=== PATIENT | male | born 1960 | race Caucasian/White ===

== ENCOUNTER 2019-09-30 14:22 | Outpatient (CLI) | payer SELFPAY ==
--- NOTE | 2019-09-30 | XR_ITS ---
WS: [id number] LUMBAR SPINE: 5 VIEWS TECHNIQUE: AP, lateral, and L5-S1 spot. Lateral views in neutral, flexion and extension. HISTORY: LOW BACK PAIN WITH SCIATICA RT HIP COMPARISON: None available. 5 lumbar type vertebral bodies. 2 mm retrolisthesis of L1-L5. Moderate disc space narrowing at L3-4 a nd L5-S1. With flexion and extension the retrolisthesis at each level does not change significantly. There is no instability. No fractures. SI joints are symmetric bilaterally. No soft tissue abnormalities. Surgical clips RIGHT abdomen. XR/XR lumbar spine min 4V [id number] IMPRESSION: 1. No lumbar spine instability. 2. Mild multilevel spondylosis. Mild disc space narrowing is most significant at the L3-4 and L5-S1 levels.
== END 2019-09-30 14:23 | disposition home or self-care (01) ==
LOC: RADOUTREAD 10-01 07:24
PROVIDERS: Family Provider Family Medicine; PCP Family Medicine; Visit Provider Family Medicine
DX: Z01.89 Encounter for other specified special examinations (principal)

== ENCOUNTER 2024-12-17 13:27 | Inpatient (IN) | payer MEDICARE, BC, SELFPAY ==
[2024-12-17 13:40] VITALS: BP 84/60; PULSE 89; RESP 18; TEMP 37; O2SAT 96
[2024-12-17 14:37] LABS: Bilirubin Urine 1+ (Negative); Blood Urine 1+ (Negative); Glucose Urine UA Negative (Normal); Ketones Urine Trace (Negative); Leukocyte Esterase Urine Negative (Negative); Nitrate Urine Negative (Negative); Protein Urine 2+ (Negative); Specific Gravity, Urine 1.024 (1.005-1.030); Urine Appearance Turbid (CLEAR); Urine Color Dark Yellow (Yellow)
[2024-12-17 15:02] LABS: UA Manual Slide Review YES; UA Slide Review UA Slide Review Perf
[2024-12-17 15:03] LABS: RBC Urine 0-4 /hpf (0-2); WBC Urine 0-4 /hpf (0-5)
[2024-12-17 15:04] LABS: Hyaline Casts Urine 25-40 /lpf
--- NOTE | 2024-12-17 16:00 | ED_ITS ---
HPI - Recheck/Abnormal Lab/Rx 2 General: Chief Complaint: Recheck/Abnormal Lab/Rx Stated Complaint: Dr Alcala for tick fever Time Seen by Provider: 12/17/24 15:50 Source: patient and family Mode of arrival: ambulatory Limitations: no limitations History of Present Illness: 64yo male presents with family for evalu ation of possible tick fever. Patient's and family report he was sent over by Dr. Deras after they obtain results from labs that were drawn at the office this morning. Patient reports that since Sunday he has been having intermittent fevers with night sweats and chills. States he has had nausea as well. Reports Dr. Deras was concerned of tick fever and possible renal injury/failure. 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 Patient was prescribed doxycycline and ondansetron this morning and has had 1 dose of each. Family does report that patient has had numerous tick bites. Patient denies any rashes or lesions from the tick bites. Family does report patient has a history of migraines and takes topiramate daily. Related Data Allergies Allergy/AdvReac Type Severity Reaction Status Date / Time No Known Allergies Allergy Verified 12/17/24 13:44 Review of Systems 2 Const: Reports: fever(s), chills and night sweats Card: Denies: chest pain Resp: Denies: dyspnea GI: Reports: nausea; Denies: abdominal pain or vomiting : Denies: flank pain Skin/Breast: Denies: rash, pruritus or new lesions PFSH ED 2 PFSH: Social History (Updated 12/17/24 @ 20:48 by Ryan Marquez MD) Smoking and tobacco/nicotine status: never used tobacco/nicotine Alcohol intake: never Substance/Drug Use: never Additional social history: Wants full code as discussed with patient and Janette at bedside on 12/17/2024 by Ryan Marquez MD 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 He is able to give history with assistance from family. He is interactive with exam appropriately. HENMT: COMMON NORMALS: normocephalic and atraumatic HEAD & SCALP: n ormocephalic and atraumatic GENERAL EAR: hearing grossly impaired Chest: CHEST: Yes Symmetrical chest wall rise Resp: COMMON NORMALS: normal respiratory effort, No use of accessory muscles and clear to auscultation bilaterally EFFORT & INSPECTION: Yes symmetric chest movement AUSCULTATION: clear to auscultation bilaterally Cardio: COMMON NORMALS: regular rate and regular rhythm RATE: regular rate RHYTHM: regular rhythm Extremity: COMMON NORMALS: full ROM Neuro: COMMON NORMALS: patient oriented x3 SENSORIUM/ORIENTATION: Yes alert Psych: COMMON NORMALS: cooperative Course 2 Vital Signs: Vital signs: Vital Signs Temperature 98.6 F 12/17/24 13:40 Pulse Rate 73 12/17/24 20:38 Respiratory Rate 20 H 12/17/24 20:38 Blood Pressure 102/62 12/17/24 20:38 Pulse Oximetry 97 12/17/24 20:38 Oxygen Delivery Me thod Room Air 12/17/24 20:38 MDM - Recheck/Abnormal Lab/Rx Medical Decision Making 64yo male presents with family for evaluation of possible tick fever and DARIA/ARF. He was seen at Dr. Deras office this morning due to intermittent fever, night sweats, and chills that have been ongoing since Sunday. Patient only has 1 kidney as his right kidney was removed in 2007 due to a tumor. They do report numerous tick bites, but no rashes or lesions on the tick bites. Initial blood pressure in triage would be 84/60, repeat once roomed was 106/64. Awaiting CBC. Creatinine is noted to be markedly elevated at 4.0 with a GFR of 15.3. BUN is also elevated at 51. AST, ALT and alkaline phosphatase are noted to be elevated at 488, 261, and 306 respectively. This is consistent with concern of tick illness. UA with 2+ protein, 1+ blood, 1+ bilirubin. While awaiting CBC, will proceed with gentle fluid resuscitation. White blood cell count is noted to be 5.8. Platelets are decreased at 37, this combined with the CMP is concerning for tickborne illness. Phosphorus and magnesium obtained due to hypocalcemia, both are in the normal range. EKG obtained as well and shows sinus rhythm. Discussed case with Dr. Marquez, hospitalist. He is agreeable with admission for hydration and tickborne illness. Patient and family are agreeable with plan for admission. Medical Records I reviewed the patient's medical records. Lab Data I reviewed the patient's lab results. 12/17/24 16:45 12/17/24 16:45 Laboratory Results WBC 5.80 10^3/uL (3.29-11.43) 12/17/24 16:45 RBC 4.12 10^6/uL (3.85-5.65) 12/17/24 16:45 Hgb 12.60 g/dL (11.27-16.99) 12/17/24 16:45 Hct 38.9 % (37-53) 12/17/24 16:45 MCV 94.4 fl (82-101) 12/17/24 16:45 MCH 30.6 pg (27-33) 12/17/24 16:45 MCHC 32.4 g/dL (30-55) 12/17/24 16:45 RDW 14.2 % (12.1-15.1) 12/17/24 16:45 Plt Count 37 10^3/cmm (157-399) L 12/17/24 16:45 MPV 12.1 fL (7.4-10.4) H 12/17/24 16:45 Neut % (Auto) 40.3 % 12/17/24 16:45 Lymph % (Auto) 53.3 % 12/17/24 16:45 Norton % (Auto) 4.3 % 12/17/24 16:45 Eos % (Auto) 0.0 % 12/17/24 16:45 Baso % (Auto) 1.4 % 12/17/24 16:45 Neut # (Auto) 2.34 10^3/uL (1.8-7.7) 12/17/24 16:45 Lymph # (Auto) 3.1 10^3/uL (0.8-4.8) 12/17/24 16:45 Norton # (Auto) 0.3 10^3/uL (0.2-0.9) 12/17/24 16:45 Eos # (Auto) 0.0 10^3/uL (0.0-0.8) 12/17/24 16:45 Baso # (Auto) 0.1 10^3/uL (0.0-0.1) 12/17/24 16:45 Nucleated RBC % (auto) 0 % 12/17/24 16:45 Nucleated RBCs # 0.0 /100WBC 12/17/24 16:45 Sodium 134 mmol/L (136-145) L 12/17/24 16:45 Potassium 4.4 mmol/L (3.5-5.1) 12/17/24 16:45 Chloride 97 mmol/L (98-107) L 12/17/24 16:45 Carbon Dioxide 17 mmol/L (22-29) L 12/17/24 16:45 Anion Gap 24.4 (5-19) H 12/17/24 16:45 BUN 51 mg/dL (8-23) H 12/17/24 16:45 Creatinine 4.0 mg/dL (0.7-1.2) H 12/17/24 16:45 GFR Calculation 15.3 mL/min (90-130) L 12/17/24 16:45 Glucose 80 mg/dL (65-115) 12/17/24 16:45 Calculated Osmolality 291 mOsm/kg (285-295) 12/17/24 16:45 Lactic Acid 1.6 mmol/L (0.5-2.2) 12/17/24 16:45 Calcium 7.8 mg/dL (8.5-10.5) L 12/17/24 16:45 Phosphorus 4.2 mg/dL (2.5-4.5) 12/17/24 16:45 Magnesium 2.1 mg/dL (1.7-2.3) 12/17/24 16:45 Total Bilirubin 0.5 mg/dL (0.15-1.2) 12/17/24 16:45 AST 488 U/L (0-40) H 12/17/24 16:45 ALT 261 U/L (0-41) H 12/17/24 16:45 Alkaline Phosphatase 306 U/L (40-130) H 12/17/24 16:45 Total Protein 6.2 g/dL (6.6-8.7) L 12/17/24 16:45 Albumin 3.3 g/dL (3.5-5.2) L 12/17/24 16:45 Globulin 2.9 g/dL (1.3-4.6) 12/17/24 16:45 Lipase 36 U/L (13-60) 12/17/24 16:45 Urine Color Dark yellow (Yellow) A 12/17/24 13:46 Urine Appearance Turbid (CLEAR) A 12/17/24 13:46 Urine pH 5.0 (5-7) 12/17/24 13:46 Ur Specific [place] 1.024 (1.005-1.030) 12/17/24 13:46 Urine Protein 2+ (Negative) A 12/17/24 13:46 Urine Glucose (UA) Negative (Normal) 12/17/24 13:46 Urine Ketones Trace (Negative) 12/17/24 13:46 Urine Blood 1+ (Negative) A 12/17/24 13:46 Urine Nitrate Negative (Negative) 12/17/24 13:46 Urine Bilirubin 1+ (Negative) H 12/17/24 13:46 Urine Urobilinogen 1.0 mg/dL (Negative) 12/17/24 13:46 Ur Leukocyte Esterase Negative (Negative) 12/17/24 13:46 Urine RBC 0-4 /hpf (0-2) H 12/17/24 13:46 Urine WBC 0-4 /hpf (0-5) H 12/17/24 13:46 Ur Squamous Epith Cells 6-10 /hpf (0-5) 12/17/24 13:46 Amorphous Sediment Not Reportable 12/17/24 13:46 Urine Bacteria None /hpf (NONE) 12/17/24 13:46 Hyaline Casts 25-40 /lpf H 12/17/24 13:46 No radiology studies performed this visit Discharge Plan Discharge Patient Disposition: Admitted As Inpatient Admit Provider: Ryan Marquez Clinical Impression: DARIA (acute kidney injury), Tick borne fever Condition: Stable Coding Level of Care Code ED Beater Lead for Xenia Reynoso
[2024-12-17 17:12] LABS: Basophils # 0.1 10^3/uL (0.0-0.1); Basophils % 1.4 %; Hematocrit 38.9 % (37-53); Lymphocytes # 3.1 10^3/uL (0.8-4.8); Lymphocytes % 53.3 %; Mean Corpuscular HGB Conc 32.4 g/dL (30-55); Mean Corpuscular Hemoglobin 30.6 pg (27-33); Mean Corpuscular Volume 94.4 fl (82-101); Mean Platelet Volume 12.1 fL (7.4-10.4); Monocytes # 0.3 10^3/uL (0.2-0.9); Monocytes % 4.3 %; Neutrophils # 2.34 10^3/uL (1.8-7.7); Neutrophils % 40.3 %; Nucleated Red Blood Cells % 0 %; Platelet Count 37 10^3/cmm (157-399); Red Blood Count 4.12 10^6/uL (3.85-5.65); Red Cell Distribution Width 14.2 % (12.1-15.1)
[2024-12-17 17:34] LABS: Alanine Aminotransferase 261 U/L (0-41); Albumin Level 3.3 g/dL (3.5-5.2); Alkaline Phosphatase 306 U/L (40-130); Anion Gap 24.4 (5-19); Aspartate Amino Transferase 488 U/L (0-40); Blood Urea Nitrogen 51 mg/dL (8-23); Calcium 7.8 mg/dL (8.5-10.5); Carbon Dioxide 17 mmol/L (22-29); Chloride 97 mmol/L (98-107); Globulin 2.9 g/dL (1.3-4.6); Glomerular Filtration Rate 15.3 mL/min (90-130); Glucose 80 mg/dL (65-115); Lipase 36 U/L (13-60); Osmolality Calculated 291 mOsm/kg (285-295); Potassium 4.4 mmol/L (3.5-5.1); Sodium 134 mmol/L (136-145); Total Bilirubin 0.5 mg/dL (0.15-1.2); Total Protein 6.2 g/dL (6.6-8.7)
[2024-12-17 17:38] LABS: Lactic Sepsis W/Reflex 1.6 mmol/L (0.5-2.2)
[2024-12-17 18:28] LABS: Slide Review Slide Review Perform
[2024-12-17] MEDS: sodium chloride 0.9% 500 ML IV (19:07)
[2024-12-17 19:10] VITALS: BP 106/64; PULSE 78; RESP 20
--- NOTE | 2024-12-17 19:11 | ECG_ITS ---
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 Measurements Intervals Pool Rate: 72 P: 39 VA: 151 QRS: -18 QRSD: 115 T: 31 QT: 371 QTc: 407 Interpretive Statements SINUS RHYTHM MODERATE INTRAVENTRICULAR CONDUCTION DELAY [110+ ms QRS DURATION] Compared to ECG 06/04/2019 21:45:39 No significant changes Electronically Signed On 12-23-2024 11:53:58 CDT by Albert Pavon M.D. [email or web address]
[2024-12-17 19:40] VITALS: BP 102/62; PULSE 75; RESP 18; O2SAT 97
[2024-12-17 19:42] LABS: Magnesium 2.1 mg/dL (1.7-2.3); Phosphorus 4.2 mg/dL (2.5-4.5)
[2024-12-17 20:38] VITALS: BP 102/62; PULSE 73; RESP 20; O2SAT 97
--- NOTE | 2024-12-17 20:41 | P.HP_ITS ---
Providers/Chief Complaint 2 Admitting Physician: Ryan Marquez MD Primary Care Provider: Ernie Deras MD Chief Complaint: Dr Alcala for tick fever History of Present Illness Bubba Park is a 64 year old male seen by Dr. Deras in the office for fevers chills sweats starting Sunday. He was thought to have tickborne illness as he has had multiple tick bites in the last 2 weeks. Notably none of them got particularly red however patient has 1 kidney from previous elective nephrectomy for kidney mass 2008 on the right kidney he does not take ibuprofen or Aleve or NSAIDs. He has been taking only Tylenol for discomfort and Topamax for headaches. Patient had labs showing creatinine 4 and was referred to the emergency department. LFTs also elevated. No particular workup was done for that in the emergency department i.e. no imaging. He did have a urine which is negative for blood or infection. The patient denies sick contacts. He denies eating any food that is compromised. He has had mild diarrhea as well as some nausea. He denies history of kidney or gallbladder stones Review of Systems 2 Narrative: General positive for fevers chills sweats he denies weight change Musculoskeletal he is had some headache but otherwise is not in pain specifically but does report some myalgias denies joint pain Cardiovascular no chest pain palpitations or edema Respiratory no shortness of breath cough wheezing GI positive for nausea poor appetite some diarrhea no constipation and he denies abdominal pain no dysuria hematuria states urine has been a little darker but he still peeing normal amounts at home Skin denies any rashes or tick borne inflammation Medications/Allergies Allergies Allergy/AdvReac Type Severity Reaction Status Date / Time No Known Allergies Allergy Verified 12/17/24 13:44 PFSH Acute 2 PFSH: Social History (Updated 12/17/24 @ 20:48 by Ryan Marquez MD) Smoking and tobacco/nicotine status: never used tobacco/nicotine Alcohol intake: never Substance/Drug Use: never Additional social history: Wants full code as discussed with patient and Janette at bedside on 12/17/2024 by Ryan Marquez MD 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 Vitals/I&O/Wt Last Vital Signs Temp 98.6 F 12/17/24 13:40 Pulse 73 12/17/24 20:38 Resp 20 H 12/17/24 20:38 BP 102/62 12/17/24 20:38 Pulse Ox 97 12/17/24 20:38 O2 Del Method Room Air 12/17/24 20:38 Weight last 48 hrs Weight 77.111 kg Physical Exam 2 Narrative: General well-developed well-nourished male in no acute cardiopulmonary distress Neuro he is alert oriented moves all extremities symmetrically neck is not stiff CV regular rate and rhythm Lungs clear to auscultation bilaterally Abdomen positive bowel sounds soft nontender Calves no tenderness cords edema Skin warm and dry Data 12/17/24 16:45 12/17/24 16:45 A&P Assessment and plan (1) Elevated LFTs: Suspicious for tickborne injury but cannot completely exclude acute hepatitis hepatitis panel has been ordered repeat labs in the morning. Abdominal ultrasound and renal ultrasound will be ordered (2) DARIA (acute kidney injury): Renal ultrasound and hydration. He is not a candidate for contrast (3) Tick borne fever: Start doxycycline PDMP PDMP Reviewed: Not Reviewed Attestations 2 Medical Necessity Statement*: Patient be admitted to the hospital with expected 2 midnights or more Coding Level of Care Code 62351 Diagnoses Elevated LFTs R79.89 DARIA (acute kidney injury) N17.9 Tick borne fever A93.8 Time Spent (min) 55
[2024-12-17] MEDS: doxycycline 100 mg Tablet PO (21:15)
[2024-12-17 21:41] VITALS: BP 102/62; PULSE 85; RESP 18; O2SAT 93
[2024-12-17 22:29] VITALS: BP 100/64; PULSE 71; RESP 16; TEMP 37.1; O2SAT 92
--- NOTE | 2024-12-17 22:29 | USR_ITS ---
PROCEDURE INFORMATION: Exam: US Abdomen Complete Exam date and time: 12/17/2024 10:36 PM Age: 64 years old Clinical indication: Abnormal findings; Abnormal lab test; Elevated liver enzymes; Additional info: Elevated lfts TECHNIQUE: Imaging protocol: Real-time ultrasound of the abdomen with image documentation. Complete exam. Total images: 5 COMPARISON: CT abdomen pelvis w con* [id number] 06/02/2019 9:31 PM FINDINGS: Liver: 14.5 cm Liver length. The liver is normal in echogenicity and configuration. No masses are detected. There is no intrahepatic biliary dilatation. Gallbladder: The gallbladder has a normal appearance with normal wall thickness and no pericholecystic fluid nor inflammatory changes. No gallstones are seen. No sludge is detected. Biliary ducts: Common bile duct diameter is 5 mm. Pancreas: Visualized pancreas is unremarkable. Right kidney: Prior right nephrectomy. Left kidney: 11.2 cm length of left kidney. Left kidney with normal parenchymal echogenicity and no hydronephrosis, calculi, solid masses, nor perinephric fluid collection. Spleen: Normal. No splenomegaly. Urinary bladder: Mildly distended urinary bladder with calculated bladder volume of 15 mL. Urinary bladder unremarkable. Aorta: Normal. No aneurysm. Inferior vena cava: IVC unremarkable. Portal venous: Spectral sonography demonstrates patent portal vein with hepatopedal blood flow. Normal respiratory phasicity on spectral waveform, indicating preserved compliance of the liver. No portal venous abnormality identified. US/US abdomen complete* [id number] IMPRESSION: No acute findings.
[2024-12-17 23:05] LABS: Hepatitis A Antibody IgM Non-Reactive (Nonreactive); Hepatitis B Core IgM Non-Reactive (Nonreactive); Hepatitis B Surface Antigen Non-Reactive (Nonreactive); Hepatitis C Virus Antibody Non-Reactive (Nonreactive)
[2024-12-17 23:28] VITALS: BMI 26.6
[2024-12-17] MEDS: sodium chlor 0.9% + KCl 20 mEq 20 MEQ/1,000 ML BAG 100 MEQ IV (23:36)
[2024-12-17] MEDS: heparin 5,000 unit/mL INJ 1 mL 5000 UNIT SUBCUT (23:37)
[2024-12-18 04:00] VITALS: BP 105/66; PULSE 71; RESP 18; TEMP 36.9; O2SAT 90
[2024-12-18 06:12] LABS: Alanine Aminotransferase 255 U/L (0-41); Alkaline Phosphatase 296 U/L (40-130); Anion Gap 23.4 (5-19); Aspartate Amino Transferase 409 U/L (0-40); Blood Urea Nitrogen 57 mg/dL (8-23); Calcium 7.4 mg/dL (8.5-10.5); Carbon Dioxide 15 mmol/L (22-29); Chloride 100 mmol/L (98-107); Creatinine Clr Calc Pharmacy 14.7867; Globulin 2.6 g/dL (1.3-4.6); Glomerular Filtration Rate 11.3 mL/min (90-130); Glucose 64 mg/dL (65-115); Osmolality Calculated 292 mOsm/kg (285-295); Potassium 4.4 mmol/L (3.5-5.1); Sodium 134 mmol/L (136-145); Total Bilirubin 0.4 mg/dL (0.15-1.2); Total Protein 5.6 g/dL (6.6-8.7)
--- NOTE | 2024-12-18 06:39 | PC.NURSE ---
pt voided once this shift, bladder scan showed 72 ml
[2024-12-18 07:17] VITALS: BP 102/62; PULSE 62; RESP 16; TEMP 36.8; O2SAT 93
[2024-12-18 08:09] LABS: Hematocrit 35.3 % (37-53); Mean Corpuscular HGB Conc 33.1 g/dL (30-55); Mean Corpuscular Hemoglobin 30.6 pg (27-33); Mean Corpuscular Volume 92.4 fl (82-101); Mean Platelet Volume 11.4 fL (7.4-10.4); Platelet Count 55 10^3/cmm (157-399); Red Blood Count 3.82 10^6/uL (3.85-5.65); Red Cell Distribution Width 14.5 % (12.1-15.1); White Blood Count 8.46 10^3/uL (3.29-11.43)
[2024-12-18 08:30] LABS: C Reactive Protein 145.6 mg/L (0.0-4.9); Lactate Dehydrogenase 885 U/L (135-225)
[2024-12-18 08:35] LABS: Erythrocyte Sedimentation Rate 8 mm/hr (0-10)
[2024-12-18 08:36] LABS: Procalcitonin 6.12 ng/mL (0-0.5)
[2024-12-18 09:04] LABS: Slide Review Slide Review Perform
[2024-12-18] MEDS: heparin 5,000 unit/mL INJ 1 mL 5000 UNIT SUBCUT ×2 (09:39→22:03)
[2024-12-18] MEDS: sodium chlor 0.9% + KCl 20 mEq 20 MEQ/1,000 ML BAG 100 MEQ IV (09:39)
[2024-12-18] MEDS: doxycycline 100 mg Tablet PO (09:39)
[2024-12-18 09:40] LABS: Absolute Segmented Neutrophil 4.1 10/cmm (1.6-7.1); Band Neutrophils Absolute 0.3 10^3/cmm (0.0-1.2); Eosinophils 0 %; Monocytes Absolute 0.3 10^3/cmm (0.1-0.6); Segmented Neutrophils 49 %; Total Cells Counted 100 (0-100)
[2024-12-18 09:41] LABS: Absolute Neutrophil 4.4 10^3/cmm (1.4-6.5); Lymphocytes 25 %; Lymphocytes Absolute 3.7 10^3/cmm (1.2-3.4); Platelet Estimate Decreased (Normal)
[2024-12-18 11:03] VITALS: BP 103/63; PULSE 60; RESP 16; TEMP 36.6; O2SAT 94
--- NOTE | 2024-12-18 11:13 | CTR_ITS ---
PROCEDURE INFORMATION: Exam: CT Chest Without Contrast; Diagnostic Exam date and time: 12/18/2024 4:21 PM Age: 64 years old Clinical indication: Other: Sepsis; Fever; Prior surgery; Surgery date: 6+ months; Surgery type: Small bowel resection, nephrectomy; Additional info: Sepsis, fever, TECHNIQUE: Imaging protocol: Diagnostic computed tomography of the chest without contrast. Radiation optimization: All CT scans at this facility use at least one of these dose optimization techniques: automated exposure control; mA and/or kV adjustment per patient size (includes targeted exams where dose is matched to clinical indication); or iterative reconstruction. COMPARISON: CR XR chest 1V [id number] 06/04/2019 3:42 AM RADIATION DOSE METRICS: Total DLP (mGy-cm): 737.08 FINDINGS: Lungs: Mild dependent atelectatic changes at the level of the bilateral lower lobes. Mild interlobular septal thickening in both lungs. No infiltrates. Pleural spaces: No pleural effusions or pneumothorax. Heart: Mild cardiomegaly. No pericardial effusions. No significant coronary artery calcifications. Lymph nodes: No mediastinal hilar lymphadenopathy. Vasculature: Unremarkable. No aortic aneurysm. Bones/joints: Unremarkable. No acute fracture. Soft tissues: Unremarkable. PROCEDURE INFORMATION: Exam: CT Abdomen And Pelvis Without Contrast Exam date and time: 12/18/2024 4:21 PM Age: 64 years old Clinical indication: Other: Sepsis; Fever; Prior surgery; Surgery date: 6+ months; Surgery type: Small bowel resection, nephrectomy; Additional info: Sepsis, fever, TECHNIQUE: Imaging protocol: Computed tomography of the abdomen and pelvis without contrast. Radiation optimization: All CT scans at this facility use at least one of these dose optimization techniques: automated exposure control; mA and/or kV adjustment per patient size (includes targeted exams where dose is matched to clinical indication); or iterative reconstruction. COMPARISON: CT abdomen pelvis w con* [id number] 06/02/2019 9:31 PM RADIATION DOSE METRICS: Total DLP (mGy-cm): 737.08 FINDINGS: Liver: Simple cyst in the left lobe of the liver measuring up to 1.9 cm. No follow-up indicated. Liver otherwise unremarkable. Gallbladder and biliary ducts: Normal. No calcified stones. No ductal dilation. Pancreas: Normal. No ductal dilation. Spleen: Normal. No splenomegaly. Adrenal glands: Normal. No mass. Kidneys and ureters: Surgically absent right kidney. Left kidney unremarkable. Stomach and bowel: Unremarkable. No obstruction. No mucosal thickening. Appendix: Appendix not visualized with certainty. No inflammatory changes in the right lower quadrant. Intraperitoneal space: Unremarkable. No free air. No significant fluid collection. Vasculature: Unremarkable. No abdominal aortic aneurysm. Lymph nodes: Unremarkable. No enlarged lymph nodes. Urinary bladder: Calles catheter within the urinary bladder which is otherwise unremarkable. Reproductive: Unremarkable as visualized. Bones/joints: Unremarkable. No acute fracture. Soft tissues: Unremarkable. CT/[place] [id number] IMPRESSION: 1. Mild interlobular thickening in both lungs which can be seen with mild fluid overload. 2. Otherwise, no acute findings in the chest. 3. Mild cardiomegaly. 4. Mild dependent atelectatic changes at the level of the bilateral lower lobes. IMPRESSION: 1. No acute findings in the abdomen or pelvis. 2. Surgically absent right kidney.
[2024-12-18 11:40] LABS: Reticulocyte % 0.4 % (0.5-2.0)
[2024-12-18 11:49] LABS: Monoscreen Negative (Negative)
[2024-12-18 11:57] LABS: Iron 30 ug/dL (59-158)
[2024-12-18 11:59] LABS: LAB Peripheral Smear Sent for Review
[2024-12-18 11:59] LABS: INR 0.86 (0.8-1.2)
[2024-12-18 12:04] LABS: Lactic Sepsis W/Reflex 0.8 mmol/L (0.5-2.2)
[2024-12-18] MEDS: sodium bicarbonate 50 MEQ in sodium chloride 0.45% 1,000 ML 100 MEQ IV ×2 (12:04→22:03)
[2024-12-18 14:06] LABS: Ferritin 15619 ng/mL (30-400)
--- NOTE | 2024-12-18 15:10 | P.PN_ITS ---
Subjective 2 Subjective: Patient was seen this morning, he is alert oriented x 2, following all commands, no headache, blurry vision, no nausea, no vomiting, no chest pain, palpitations, shortness of breath, no abdominal pain, no diarrhea, no cough, no dysuria, discussed his acute transaminitis, acute kidney injury with creatinine up to 5.2, elevated inflammatory markers highly suspicious for tickborne illness, continue doxycycline we will monitor him closely, IV fluids, he voices understanding, all questions answered, does report quite frequent tick bites, not currently on him Vitals/I&O/Wt Last Vital Signs Temp 97.8 F 12/18/24 11:03 Pulse 60 12/18/24 11:03 Resp 16 12/18/24 11:03 BP 103/63 12/18/24 11:03 Pulse Ox 94 12/18/24 11:03 O2 Del Method Room Air 12/18/24 11:03 12/18/24 12/18/24 12/18/24 06:59 14:59 22:59 Intake Total 1474 / 1474 Balance 1474 / 1474 Weight last 48 hrs Weight 78.29 kg Weight 78.29 kg Weight 77.111 kg Weight 77.111 kg Physical Exam 2 Const: COMMON NORMALS: no acute distress and patient oriented x3 Resp: COMMON NORMALS: normal respiratory effort, No retractions, No use of accessory muscles and clear to auscultation bilaterally AUSCULTATION: clear to auscultation bilaterally Cardio: COMMON NORMALS: regular rate, regular rhythm, S1 normal heart sound present and S2 normal heart sound present RATE: regular rate RHYTHM: r egular rhythm HEART SOUNDS: S1 normal heart sound present and S2 normal heart sound present GI: COMMON NORMALS: Normal to inspection, nondistended, normoactive bowel sounds present and non-tender Extremity: COMMON NORMALS: no pedal edema Neuro: COMMON NORMALS: patient oriented x3, CN's II-XII intact bilaterally and moves all extremities Psych: COMMON NORMALS: mental status grossly normal Data 12/18/24 04:45 12/18/24 04:45 Micro: Microbiology 12/18/24 09:32 Blood Culture - Preliminary Blood SPECIMEN COLLECTED 12/18/24 09:24 Blood Culture - Preliminary Blood SPECIMEN COLLECTED A&P Assessment and plan (1) Elevated LFTs: (2) DARIA (acute kidney injury): (3) Tick borne fever: (4) Thrombocytopenia: (5) Increased anion gap metabolic acidosis: (6) High serum ferritin: Plan Tickborne illness - With transaminitis - With acute renal failure, - With thrombocytopenia - Elevated inflammatory markers - CRP 145.6, Pro-Matheus 6.12, ferritin 79623, [id number], haptoglobin 286 Plan - Continue IV doxycycline - Follow tick panel - Given elevated inflammatory markers, complains of fevers, chills, DARIA,, alk phos will rule out secondary source of infection, order CT scan chest abdomen pelvis Acute renal failure - With increased anion gap metabolic acidosis - History of nephrectomy - Continue bicarb drip - Monitor urine output, monitor creatinine History of cochlear implant - Denies any neck pain, no neck stiffness, no headache, no blurry vision, alert oriented x 3 - Kernig sign negative, Brudunski sign negative Full code Heparin for DVT prophylaxis PDMP PDMP Reviewed: Not Reviewed Attestations 2 Medical Necessity Statement*: Patient requires hospitalization for tickborne illness, acute renal failure, transaminitis Diagnoses Elevated LFTs R79.89 DARIA (acute kidney injury) N17.9 Tick borne fever A93.8 Thrombocytopenia D69.6 Increased anion gap metabolic acidosis E87.29 High serum ferritin R79.89
[2024-12-18 15:14] VITALS: BP 103/67; PULSE 61; RESP 16; TEMP 36.4; O2SAT 95
[2024-12-18 15:44] LABS: Fibrinogen 262 mg/dL (174-498)
[2024-12-18 15:50] LABS: Triglycerides 396 mg/dL (0-150)
[2024-12-18 15:51] LABS: Acetaminophen < 5.0 ug/mL (10-30); Salicylate < 0.3 mg/dL (3-10)
[2024-12-18] MEDS: topiramate 25 mg Tablet PO (18:40)
[2024-12-18] MEDS: doxycycline 100 MG in sodium chloride 0.9% (plus) 100 ML IV (18:40)
[2024-12-18 19:28] LABS: Amphetamines Screen Urine Negative (Negative); Barbiturates Screen Urine Negative (Negative); Benzodiazepines Screen Urine Negative (Negative); Cocaine Screen Urine Negative (Negative); Opiate Screen Urine Negative (Negative); PCP Screen Urine Negative (Negative); THC Screen Urine Negative (Negative)
[2024-12-18 19:44] LABS: HIV 1 & 2 Antibody Non-Reactive (Non-Reactiv); HIV 1 & 2 Antigen Non-Reactive (Non-Reactiv)
[2024-12-18 20:00] VITALS: BP 112/71; PULSE 64; RESP 16; TEMP 36.7; O2SAT 95
--- NOTE | 2024-12-18 21:36 | PM.CONSULT ---
Providers/Reason For Consult Consulting Physician/Specialty*: kommana/Nephrology Reason for Consult*: Acute on CKD Attending Physician: Chun Bell MD Primary Care Provider: Ernie Deras MD History of Present Illness History of Present Illness Bubba Park is a 64 year old male Patient is a 64-year-old male with past medical history of chronic kidney disease with solitary kidney, no other significant medical problems was sent to the hospital due to fever chills and patient had multiple tick bites about 2 weeks ago.. Denies any NSAID use. No recent IV contrast exposure. On review of prior labs patient has a baseline creatinine of 1.5-2 range and now has DARIA with a creatinine of 4 on presentation that has gotten worse to 5.2. Also has metabolic acidosis. He is currently on room air Review of Systems Narrative: Other review of systems negative Medications/Allergies Home Medications ?Medication ?Instructions ?Recorded ?Confirmed ?Last Taken ?Type topiramate 50 mg tablet 50 mg PO BID 12/17/24 12/17/24 Unknown History Allergies Allergy/AdvReac Type Severity Reaction Status Date / Time mupirocin (From Bactroban) Allergy ALGY-Rash Verified 12/17/24 23:31 Current Medications Generic Name Dose Route Start Last Admin Trade Name Freq PRN Reason Stop Dose Admin Heparin Sodium (Porcine) 5,000 unit 12/17/24 22:29 12/18/24 09:39 Heparin 5,000 Unit/Ml Inj 1 Ml SUBCUT 5,000 unit Q12H YESENIA Administration Doxycycline Hyclate 100 mg/ 100 mls @ 100 mls/hr 12/18/24 18:00 12/18/24 19:45 Sodium Chloride IV Infused Q12H YESENIA Infusion Protocol Sodium Bicarbonate 50 meq/ 1,050 mls @ 100 mls/hr 12/18/24 11:15 12/18/24 19:45 Sodium Chloride IV 100 mls/hr .[id number] YESENIA Infusion Topiramate 25 mg 12/18/24 18:00 12/18/24 18:40 Topiramate 25 Mg Tablet PO 25 mg BID YESENIA Administration PFSH Acute PFSH: Social History (Updated 12/17/24 @ 20:48 by Ryan Marquez MD) Smoking and tobacco/nicotine status: never used tobacco/nicotine Alcohol intake: never Substance/Drug Use: never Additional social history: Wants full code as discussed with patient and Janette at bedside on 12/17/2024 by Ryan Marquez MD Previous occupational history: 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 dizzy and migraine Vitals/I&O/Wt Last Vital Signs Temp 98.1 F 12/18/24 20:00 Pulse 64 12/18/24 20:00 Resp 16 12/18/24 20:00 BP 112/71 12/18/24 20:00 Pulse Ox 95 12/18/24 20:00 O2 Del Method Room Air 12/18/24 20:00 12/18/24 12/18/24 12/18/24 06:59 14:59 22:59 Intake Total 1474 / 1474 2014 / 3489 Output Total 250 / 250 Balance 1474 / 1474 1765 / 3239 Weight last 48 hrs Weight 78.29 kg Weight 78.29 kg Weight 77.111 kg Weight 77.111 kg Physical Exam Narrative: Patient is awake and alert, no distress, on room air PERRLA S1-S2 regular rate and rhythm per report Lungs clear per report Abdomen soft nontender per report No pedal edema Urinary Catheter Management: Calles: Cath Placed During This Visit: yes Urinary Catheter Date of Insertion: 12/18/24 Urinary Catheter Time of Insertion: 11:30 Data 12/18/24 04:45 12/18/24 04:45 Micro: Microbiology 12/18/24 09:32 Blood Culture - Preliminary Blood SPECIMEN COLLECTED 12/18/24 09:24 Blood Culture - Preliminary Blood SPECIMEN COLLECTED A&P Assessment and plan (1) DARIA (acute kidney injury): 1. Acute on chronic kidney disease stage III: Baseline creatinine in the mid 1 range, now has severe DARIA with a creatinine of 5.2 associated with metabolic acidosis. Etiology likely ATN in the setting of poor p.o. intake and acute infection. Patient also with solitary left kidney. Agree with bicarbonate drip, and monitor renal function closely. He is currently on room air.- -No acute indication for dialysis today, if renal function continues to get worse will require temporary HD -Avoid IV contrast if possible 2. Metabolic acidosis, agree with bicarbonate drip and monitor 3. Suspected tickborne illness, on doxycycline 4. Hyponatremia: Mild, monitor Patient evaluated using audiovisual cart. Time spent 40 minutes. - PDMP PDMP Reviewed: Not Reviewed Consult Attestations Medical Necessity Statement: Per medicine team. Coding Level of Care Code Acute Code for Chg Fwd Diagnoses DARIA (acute kidney injury) N17.9
[2024-12-18 23:49] VITALS: BP 114/70; PULSE 67; RESP 16; TEMP 36.4; O2SAT 94
[2024-12-19 04:00] VITALS: BP 116/68; PULSE 65; RESP 16; TEMP 36.4; O2SAT 95
[2024-12-19] MEDS: doxycycline 100 MG in sodium chloride 0.9% (plus) 100 ML IV ×2 (05:14→17:58)
[2024-12-19 05:43] LABS: Basophils % 0.3 %; Eosinophils % 0.1 %; Hematocrit 34.3 % (37-53); Lymphocytes # 8.4 10^3/uL (0.8-4.8); Lymphocytes % 75.2 %; Mean Corpuscular HGB Conc 33.8 g/dL (30-55); Mean Corpuscular Hemoglobin 30.9 pg (27-33); Mean Corpuscular Volume 91.5 fl (82-101); Mean Platelet Volume 11.2 fL (7.4-10.4); Monocytes % 8.6 %; Neutrophils # 1.72 10^3/uL (1.8-7.7); Neutrophils % 15.4 %; Nucleated Red Blood Cells % 0 %; Platelet Count 78 10^3/cmm (157-399); Red Blood Count 3.75 10^6/uL (3.85-5.65); Red Cell Distribution Width 14.5 % (12.1-15.1); White Blood Count 11.14 10^3/uL (3.29-11.43)
[2024-12-19 06:00] LABS: Creatine Phosphokinase 101 U/L (39-308)
[2024-12-19 06:01] LABS: Alanine Aminotransferase 275 U/L (0-41); Albumin Level 2.9 g/dL (3.5-5.2); Alkaline Phosphatase 327 U/L (40-130); Anion Gap 18.3 (5-19); Aspartate Amino Transferase 415 U/L (0-40); Blood Urea Nitrogen 76 mg/dL (8-23); Calcium 7.4 mg/dL (8.5-10.5); Carbon Dioxide 20 mmol/L (22-29); Chloride 105 mmol/L (98-107); Creatinine Clr Calc Pharmacy 13.1456; Globulin 2.1 g/dL (1.3-4.6); Glomerular Filtration Rate 9.8 mL/min (90-130); Glucose 108 mg/dL (65-115); Osmolality Calculated 311 mOsm/kg (285-295); Potassium 4.3 mmol/L (3.5-5.1); Sodium 139 mmol/L (136-145); Total Bilirubin 0.3 mg/dL (0.15-1.2)
[2024-12-19 07:08] VITALS: BP 128/77; PULSE 60; RESP 16; TEMP 36.6; O2SAT 96
[2024-12-19 07:33] LABS: EBV IGM TEST <36.00 U/mL; EBV Nuclear AG >600.00 U/mL; EBV Viral Capsid AB IGM <36.00 U/mL
--- NOTE | 2024-12-19 09:01 | P.PN_ITS ---
Subjective 2 Subjective: no new complaints Medications: Reviewed: Yes Vitals/I&O/Wt Last Vital Signs Temp 97.8 F 12/19/24 07:08 Pulse 60 12/19/24 07:08 Resp 16 12/19/24 07:08 BP 128/77 12/19/24 07:08 Pulse Ox 96 12/19/24 07:08 O2 Del Method Room Air 12/19/24 07:08 12/18/24 12/19/24 12/19/24 22:59 06:59 14:59 Intake Total 2245 / 3719 820 / 4539 120 / 120 Output Total 450 / 450 600 / 1050 Balance 1795 / 3269 220 / 3489 120 / 120 Weight last 48 hrs Weight 79.832 kg Weight 78.29 kg Weight 78.29 kg Weight 77.111 kg Weight 77.111 kg Physical Exam 2 Narrative: Patient is awake and alert, no distress, on room air PERRLA S1-S2 regular rate and rhythm per report Lungs clear per report Abdomen soft nontender per report No pedal edema Urinary Catheter Management: Calles: Cath Placed During This Visit: yes Reason for Continuing Indwelling Catheter: Acute Urinary Retention or Obstruction Urinary Catheter Date of Insertion: 12/18/24 Urinary Catheter Time of Insertion: 11:30 Data 12/19/24 04:29 12/19/24 04:29 Micro: Microbiology 12/18/24 09:32 Blood Culture - Preliminary Blood SPECIMEN COLLECTED 12/18/24 09:24 Blood Culture - Preliminary Blood SPECIMEN COLLECTED A&P Assessment and plan (1) DARIA (acute kidney injury): 1. Acute on chronic kidney disease stage III: Baseline creatinine in the mid 1 range, now has severe DARIA with a creatinine of 5.2 associated with metabolic acidosis. Etiology likely ATN in the setting of poor p.o. intake and acute infection. Patient also with solitary left kidney. Agree with bicarbonate drip, and monitor renal function closely. He is currently on room air.- - Cr worse today . monitor -No acute indication for dialysis today, if renal function continues to get worse will require temporary HD -Avoid IV contrast if possible 2. Metabolic acidosis, agree with bicarbonate drip and monitor 3. Suspected tickborne illness, on doxycycline 4. Hyponatremia: Mild, monitor Patient evaluated using audiovisual cart. Time spent 40 minutes. - PDMP PDMP Reviewed: Not Reviewed Attestations 2 Medical Necessity Statement*: per feliz Coding Level of Care Code Acute Code for Chg Fwd Diagnoses DARIA (acute kidney injury) N17.9
--- NOTE | 2024-12-19 10:02 | PC.SOCIAL ---
IMM Update pg 2 of IMM Updated and reviewed w/ patient. Copy dated, initialed and placed in chart. Copy provided.
[2024-12-19] MEDS: topiramate 25 mg Tablet PO ×2 (10:43→17:58)
[2024-12-19] MEDS: heparin 5,000 unit/mL INJ 1 mL 5000 UNIT SUBCUT ×2 (10:44→23:03)
[2024-12-19] MEDS: sodium bicarbonate 50 MEQ in sodium chloride 0.45% 1,000 ML 100 MEQ IV ×2 (10:51→23:03)
[2024-12-19 11:04] VITALS: BP 119/76; PULSE 56; RESP 15; TEMP 36.5; O2SAT 97
[2024-12-19 15:10] VITALS: BP 109/72; PULSE 55; RESP 15; TEMP 36.4; O2SAT 96
--- NOTE | 2024-12-19 16:16 | P.PN_ITS ---
Subjective 2 Subjective: Patient was seen this morning, he is alert oriented x 3, following all commands, denies any fevers, no chills, no cough, he is having good urine output discussed his creatinine up to 5.9, continue IV fluids, discussed tickborne illness, will continue to clinically monitor Vitals/I&O/Wt Last Vital Signs Temp 97.5 F L 12/19/24 15:10 Pulse 55 L 12/19/24 15:10 Resp 15 12/19/24 15:10 BP 109/72 12/19/24 15:10 Pulse Ox 96 12/19/24 15:10 O2 Del Method Room Air 12/19/24 15:10 12/19/24 12/19/24 12/19/24 06:59 14:59 22:59 Intake Total 820 / 4539 450 / 450 Output Total 600 / 1050 400 / 400 Balance 220 / 3489 50 / 50 Weight last 48 hrs Weight 79.832 kg Weight 78.29 kg Weight 78.29 kg Weight 77.111 kg Physical Exam 2 Const: COMMON NORMALS: no acute distress and patient oriented x3 Resp: COMMON NORMALS: normal respiratory effort, No retractions, No use of accessory muscles and clear to auscultation bilaterally AUSCULTATION: clear to auscultation bilaterally Cardio: COMMON NORMALS: regular rate, regular rhythm, S1 normal heart sound present and S2 normal heart sound present RATE: regular rate RHYTHM: r egular rhythm HEART SOUNDS: S1 normal heart sound present and S2 normal heart sound present GI: COMMON NORMALS: Normal to inspection, nondistended, normoactive bowel sounds present and non-tender Extremity: COMMON NORMALS: no pedal edema Neuro: COMMON NORMALS: patient oriented x3 Psych: COMMON NORMALS: mental status grossly normal Urinary Catheter Management: Calles: Cath Placed During This Visit: yes Reason for Continuing Indwelling Catheter: Acute Urinary Retention or Obstruction Urinary Catheter Date of Insertion: 12/18/24 Urinary Catheter Time of Insertion: 11:30 Data 12/19/24 04:29 12/19/24 04:29 Micro: Microbiology 12/18/24 09:32 Blood Culture - Preliminary Blood NEGATIVE TO DATE 12/18/24 09:24 Blood Culture - Preliminary Blood NEGATIVE TO DATE A&P Assessment and plan (1) Elevated LFTs: (2) DARIA (acute kidney injury): (3) Tick borne fever: (4) Thrombocytopenia: (5) Increased anion gap metabolic acidosis: (6) High serum ferritin: Plan Tickborne illness - With transaminitis - With acute renal failure, - With thrombocytopenia - Elevated inflammatory markers - CRP 145.6, Pro-Matheus 6.12, ferritin 49991, [id number], haptoglobin 286 - CT scan abdomen pelvis no acute findings Plan - Continue IV doxycycline - Follow tick panel Acute renal failure, creatinine up to 5.9 - With increased anion gap metabolic acidosis - History of nephrectomy, surgically absent right kidney - Continue bicarb drip - Monitor urine output, monitor creatinine - Nephrology consulted History of cochlear implant - Denies any neck pain, no neck stiffness, no headache, no blurry vision, alert oriented x 3 - Kernig sign negative, Brudunski sign negative Full code Heparin for DVT prophylaxis PDMP PDMP Reviewed: Not Reviewed Attestations 2 Medical Necessity Statement*: Patient requires hospitalization for tickborne illness, acute renal failure, transaminitis, thrombocytopenia Diagnoses Elevated LFTs R79.89 DARIA (acute kidney injury) N17.9 Tick borne fever A93.8 Thrombocytopenia D69.6 Increased anion gap metabolic acidosis E87.29 High serum ferritin R79.89
[2024-12-19 18:07] LABS: Anion Gap 19.5 (5-19); Blood Urea Nitrogen 75 mg/dL (8-23); Carbon Dioxide 20 mmol/L (22-29); Chloride 103 mmol/L (98-107); Creatinine Clr Calc Pharmacy 15.8283; Glomerular Filtration Rate 12.1 mL/min (90-130); Glucose 96 mg/dL (65-115); Osmolality Calculated 308 mOsm/kg (285-295); Potassium 4.5 mmol/L (3.5-5.1); Sodium 138 mmol/L (136-145)
[2024-12-19 20:00] VITALS: BP 119/74; PULSE 60; RESP 16; TEMP 36.4; O2SAT 96
[2024-12-20] VITALS (7 sets, daily range): BP systolic 119–138; BP diastolic 74–77; PULSE 50–58; RESP 15–17; TEMP 36.4–36.7; O2SAT 94–97
[2024-12-20 03:35] LABS: Lyme AB Screen <0.90 index
[2024-12-20 05:23] LABS: Basophils # 0.1 10^3/uL (0.0-0.1); Basophils % 0.7 %; Eosinophils # 0.1 10^3/uL (0.0-0.8); Eosinophils % 0.6 %; Lymphocytes # 9.3 10^3/uL (0.8-4.8); Lymphocytes % 77.6 %; Mean Corpuscular HGB Conc 32.7 g/dL (30-55); Mean Corpuscular Hemoglobin 30.4 pg (27-33); Monocytes # 0.5 10^3/uL (0.2-0.9); Monocytes % 4.5 %; Neutrophils # 1.95 10^3/uL (1.8-7.7); Neutrophils % 16.3 %; Nucleated Red Blood Cells % 0 %; Platelet Count 79 10^3/cmm (157-399); Red Blood Count 3.55 10^6/uL (3.85-5.65); Red Cell Distribution Width 14.8 % (12.1-15.1); White Blood Count 11.93 10^3/uL (3.29-11.43)
--- NOTE | 2024-12-20 05:27 | P.PN_ITS ---
Subjective 2 Subjective: no new c/o Medications: Reviewed: Yes Vitals/I&O/Wt Last Vital Signs Temp 97.7 F 12/20/24 03:45 Pulse 58 L 12/20/24 03:45 Resp 17 12/20/24 03:45 BP 124/77 12/20/24 03:45 Pulse Ox 95 12/20/24 03:45 O2 Del Method Room Air 12/20/24 03:45 12/19/24 12/19/24 12/20/24 14:59 22:59 06:59 Intake Total 450 / 450 1051.667 / 1501.667 438.333 / 1940.000 Output Total 400 / 400 1450 / 1850 Balance 50 / 50 1051.667 / 1101.667 -1011.667 / 90.000 Weight last 48 hrs Weight 79.333 kg Weight 79.832 kg Weight 78.29 kg Physical Exam 2 Narrative: Patient is awake and alert, no distress, on room air PERRLA S1-S2 regular rate and rhythm per report Lungs clear per report Abdomen soft nontender per report No pedal edema Urinary Catheter Management: Calles: Cath Placed During This Visit: yes Reason for Continuing Indwelling Catheter: Other Urinary Catheter Date of Insertion: 12/18/24 Urinary Catheter Time of Insertion: 11:30 Data 12/21/24 02:14 12/21/24 02:14 Micro: Microbiology 12/18/24 09:32 Blood Culture - Preliminary Blood NEGATIVE TO DATE 12/18/24 09:24 Blood Culture - Preliminary Blood NEGATIVE TO DATE A&P Assessment and plan (1) DARIA (acute kidney injury): 1. Acute on chronic kidney disease stage III: Baseline creatinine in the mid 1 range, now has severe DARIA with a creatinine of 5.2 associated with metabolic acidosis. Etiology likely ATN in the setting of poor p.o. intake and acute infection. Patient also with solitary left kidney. Agree with bicarbonate drip, and monitor renal function closely. He is currently on room air.- - cr improving , monitor -Avoid IV contrast if possible 2. Metabolic acidosis, agree with bicarbonate drip and monitor 3. Suspected tickborne illness, on doxycycline 4. Hyponatremia: Mild, monitor Patient evaluated using audiovisual cart. Time spent 40 minutes. - PDMP PDMP Reviewed: Not Reviewed Attestations 2 Medical Necessity Statement*: per [facility] Coding Level of Care Code Acute Code for Chg Fwd Diagnoses DARIA (acute kidney injury) N17.9
[2024-12-20 05:52] LABS: Alanine Aminotransferase 285 U/L (0-41); Albumin Level 2.7 g/dL (3.5-5.2); Alkaline Phosphatase 324 U/L (40-130); Anion Gap 16.5 (5-19); Aspartate Amino Transferase 364 U/L (0-40); Blood Urea Nitrogen 74 mg/dL (8-23); Calcium 7.9 mg/dL (8.5-10.5); Carbon Dioxide 23 mmol/L (22-29); Chloride 106 mmol/L (98-107); Globulin 2.4 g/dL (1.3-4.6); Glomerular Filtration Rate 12.4 mL/min (90-130); Glucose 92 mg/dL (65-115); Osmolality Calculated 314 mOsm/kg (285-295); Potassium 4.5 mmol/L (3.5-5.1); Sodium 141 mmol/L (136-145); Total Bilirubin 0.4 mg/dL (0.15-1.2); Total Protein 5.1 g/dL (6.6-8.7)
[2024-12-20] MEDS: doxycycline 100 MG in sodium chloride 0.9% (plus) 100 ML IV ×2 (05:56→17:24)
[2024-12-20 06:08] LABS: Slide Review Slide Review Perform
[2024-12-20] MEDS: topiramate 25 mg Tablet PO ×2 (08:23→17:24)
[2024-12-20] MEDS: heparin 5,000 unit/mL INJ 1 mL 5000 UNIT SUBCUT ×2 (10:47→21:39)
[2024-12-20] MEDS: sodium bicarbonate 50 MEQ in sodium chloride 0.45% 1,000 ML 100 MEQ IV (10:47)
[2024-12-20 11:13] LABS: HIV 1 & 2 Antibody Non-Reactive (Non-Reactiv); HIV 1 & 2 Antigen Non-Reactive (Non-Reactiv)
--- NOTE | 2024-12-20 14:45 | P.PN_ITS ---
Subjective 2 Subjective: Patient was seen this morning, no acute events overnight, no fevers, chills, no cough, no nausea, vomiting, continues to have good urine output Vitals/I&O/Wt Last Vital Signs Temp 97.8 F 12/20/24 11:14 Pulse 56 L 12/20/24 11:14 Resp 16 12/20/24 11:14 BP 126/77 12/20/24 11:14 Pulse Ox 96 12/20/24 11:14 O2 Del Method Room Air 12/20/24 11:14 12/19/24 12/20/24 12/20/24 22:59 06:59 14:59 Intake Total 1051.667 / 9539.976 5836.666 / 2728.333 721.667 / 721.667 Output Total 1450 / 1850 1200 / 1200 Balance 1051.667 / 1101.667 -223.334 / 878.333 -478.333 / -478.333 Weight last 48 hrs Weight 79.333 kg Weight 79.832 kg Physical Exam 2 Const: COMMON NORMALS: no acute distress and patient oriented x3 Resp: COMMON NORMALS: normal respiratory effort, No retractions, No use of accessory muscles and clear to auscultation bilaterally AUSCULTATION: clear to auscultation bilaterally Cardio: COMMON NORMALS: regular rate, regular rhythm, S1 normal heart sound present and S2 normal heart sound present RATE: regular rate RHYTHM: r egular rhythm HEART SOUNDS: S1 normal heart sound present and S2 normal heart sound present GI: COMMON NORMALS: Normal to inspection, nondistended, normoactive bowel sounds present, Soft to palpation and non-tender PALPATION: Yes Soft to palpation Extremity: COMMON NORMALS: no pedal edema Neuro: COMMON NORMALS: patient oriented x3 Psych: COMMON NORMALS: mental status grossly normal Urinary Catheter Management: Calles: Cath Placed During This Visit: yes, but has since been removed by the nurse Reason for Continuing Indwelling Catheter: Decision to DC Catheter Urinary Catheter Date of Insertion: 12/18/24 Urinary Catheter Time of Insertion: 11:30 Date Urinary Catheter Removed: 12/20/24 Time Urinary Catheter Discontinued: 13:34 Data 12/20/24 04:22 12/20/24 04:22 A&P Assessment and plan (1) Elevated LFTs: (2) DARIA (acute kidney injury): (3) Tick borne fever: (4) Thrombocytopenia: (5) Increased anion gap metabolic acidosis: (6) High serum ferritin: Plan Tickborne illness - With transaminitis - With acute renal failure, - With thrombocytopenia - Elevated inflammatory markers - CRP 145.6, Pro-Matheus 6.12, ferritin 72774, [id number], haptoglobin 286 - CT scan abdomen pelvis no acute findings Plan - Continue IV doxycycline - Follow tick panel Acute renal failure, creatinine up to 4.8 - With increased anion gap metabolic acidosis - History of nephrectomy, surgically absent right kidney - Continue bicarb drip - Monitor urine output, monitor creatinine - Nephrology consulted History of cochlear implant - Denies any neck pain, no neck stiffness, no headache, no blurry vision, alert oriented x 3 - Kernig sign negative, Brudunski sign negative Does have atypical lymphocytes in peripheral smear - Repeat HIV testing - EBV testing, IgM antibody negative, nuclear antigen positive, EBV IgG antibody indicated for past infection - Order toxo plasma cells, CMV, Bartonella, leukemia/lymphoma testing, will need to follow-up with hematology oncology as outpatient Full code Heparin for DVT prophylaxis PDMP PDMP Reviewed: Not Reviewed Attestations 2 Medical Necessity Statement*: Patient requires hospitalization for tickborne illness, acute renal failure Diagnoses Elevated LFTs R79.89 DARIA (acute kidney injury) N17.9 Tick borne fever A93.8 Thrombocytopenia D69.6 Increased anion gap metabolic acidosis E87.29 High serum ferritin R79.89
[2024-12-20] MEDS: acetaminophen 325 mg Tablet 650 MG PO (17:27)
[2024-12-21 03:14] LABS: Hematocrit 33.5 % (37-53); Mean Corpuscular HGB Conc 32.5 g/dL (30-55); Mean Corpuscular Hemoglobin 30.1 pg (27-33); Mean Corpuscular Volume 92.5 fl (82-101); Mean Platelet Volume 10.8 fL (7.4-10.4); Platelet Count 126 10^3/cmm (157-399); Red Blood Count 3.62 10^6/uL (3.85-5.65); Red Cell Distribution Width 14.8 % (12.1-15.1); White Blood Count 12.02 10^3/uL (3.29-11.43)
[2024-12-21 03:52] VITALS: BP 152/73; PULSE 56; RESP 16; TEMP 36.5; O2SAT 96
[2024-12-21 04:25] LABS: Alanine Aminotransferase 364 U/L (0-41); Alkaline Phosphatase 334 U/L (40-130); Aspartate Amino Transferase 484 U/L (0-40); Blood Urea Nitrogen 66 mg/dL (8-23); Carbon Dioxide 23 mmol/L (22-29); Creatinine Clr Calc Pharmacy 21.4772; Globulin 2.6 g/dL (1.3-4.6); Glomerular Filtration Rate 16.7 mL/min (90-130); Glucose 85 mg/dL (65-115); Total Bilirubin 0.4 mg/dL (0.15-1.2); Total Protein 5.6 g/dL (6.6-8.7)
[2024-12-21] MEDS: doxycycline 100 MG in sodium chloride 0.9% (plus) 100 ML IV (05:06)
[2024-12-21 05:08] LABS: Slide Review Slide Review Perform
[2024-12-21 05:10] LABS: Absolute Eosinophils 0.1 10^3/cmm (0.0-0.7); Absolute Neutrophil 3.6 10^3/cmm (1.4-6.5); Absolute Segmented Neutrophil 3.4 10/cmm (1.6-7.1); Band Neutrophils Absolute 0.2 10^3/cmm (0.0-1.2); Eosinophils 1 %; Lymphocytes 54 %; Lymphocytes Absolute 7.3 10^3/cmm (1.2-3.4); Platelet Estimate Decreased (Normal); Segmented Neutrophils 28 %; Total Cells Counted 100 (0-100)
[2024-12-21 05:50] LABS: Anion Gap 16.4 (5-19); Chloride 109 mmol/L (98-107); Osmolality Calculated 316 mOsm/kg (285-295); Potassium 4.4 mmol/L (3.5-5.1); Sodium 144 mmol/L (136-145)
[2024-12-21] MEDS: topiramate 25 mg Tablet PO (07:32)
[2024-12-21] MEDS: heparin 5,000 unit/mL INJ 1 mL 5000 UNIT SUBCUT (07:33)
[2024-12-21 07:35] VITALS: BP 131/78; PULSE 54; RESP 17; TEMP 36.5; O2SAT 96
[2024-12-21 10:44] VITALS: BP 130/70; PULSE 58; O2SAT 97
--- NOTE | 2024-12-22 08:46 | P.DS_ITS ---
Discharge Providers Date of Admission: 12/17/24 20:21 Date of Discharge: December 21, 2024 Attending Provider at Admission: Ryan Marquez MD Attending Provider at Discharge: Chun Bell MD Primary Care Provider: Ernie Deras MD Diagnoses at Discharge Discharge Diagnosis (1) DARIA (acute kidney injury): Status: Resolved Reason for Visit Reason for Visit: Dr Alcala for tick fever Hospital Course Hospital Course This is a 64-year-old male, with a past medical history of right nephrectomy, CKD, who presents [facility] due to fevers, chills, sweats Patient was admitted to [facility] tickborne illness, transaminitis, acute renal failure, thrombocytopenia, elevated inflammatory markers. Patient was monitored as inpatient, received IV doxycycline, tick panel ordered, overall clinically improved. Will be discharged on 10 remaining days of doxycycline, follow-up tick panel as outpatient. Patient's inflammatory markers were elevated -CRP 145.6, Pro-[place] 6.12, ferritin 57763, TZO187, haptoglobin 286 - Peripheral smear showing atypical monocytoid cells - HIV testing was negative - EBV testing was negative for acute infection - Patient did not meet criteria for HLH - Patient has atypical monocytosis could be from erlichiosis, however lymphoma leukemia panel was ordered, patient is to follow-up with hematology oncology as outpatient - CMV panel pending, toxoplasmosis, Bartonella panel pending Patient's hospitalization was complicated with DARIA, with history of right nephrectomy, requiring nephrology consultation, bicarbonate drip -Continues to have good urine output - Overall clinically improved - Creatinine on discharge 3.7, discussed with patient to continue to hydrate well on discharge at least 2 L of fluid a day - Follow-up with primary care to monitor kidney function Patient's transaminitis did slightly increase on discharge AST 44, ALT 364, discussed with patient to follow-up with primary care, he is LFTs need monitoring - Your hemoglobin discharge 10.9 - Platelet count discharge 126 to be monitored by Dr. Deras - You have atypical lymphocytes your peripheral smear, this needs to be monitored, referral sent to Dr. Mclaughlin - Your creatinine at discharge is 3.7, please follow-up through primary care, drink at least 2 to 3 L of fluid a day, avoid NSAIDs - AST 484 - ALT 364 - This needs to be monitored by your primary care - If any fevers or chills go to emergency room Physical Exam Const: COMMON NORMALS: no acute distress and patient oriented x3 Resp: COMMON NORMALS: normal respiratory effort, No retractions, No use of accessory muscles and clear to auscultation bilaterally AUSCULTATION: clear to auscultation bilaterally Cardio: COMMON NORMALS: regular rate, regular rhythm, S1 normal heart sound present and S2 normal heart sound present RATE: regular rate RHYTHM: regular rhythm HEART SOUNDS: S1 normal heart sound present and S2 normal heart sound present GI: COMMON NORMALS: Normal to inspection, nondistended, normoactive bowel sounds present and non-tender Extremity: COMMON NORMALS: no pedal edema Neuro: COMMON NORMALS: patient oriented x3 Psych: COMMON NORMALS: mental status grossly normal Urinary Catheter Management: Calles: Cath Placed During This Visit: yes, but has since been removed by the nurse Reason for Continuing Indwelling Catheter: Decision to DC Catheter Urinary Catheter Date of Insertion: 12/18/24 Urinary Catheter Time of Insertion: 11:30 Date Urinary Catheter Removed: 12/20/24 Time Urinary Catheter Discontinued: 13:34 Discharge Data Studies Completed and Pending Completed Studies During Hospitalization Category Date Time Status CT chest abdomen pelvis [[place] [id number] Cat Scan 12/18/24 11:13 Completed ] Routine US abdomen complete* [id number] Routine Ultrasound 12/17/24 22:29 Completed Pending at discharge Category Date Time Status Bartonella Species AB(IgG,IgM) Routine Lab 12/20/24 10:38 Received Blood Culture Stat Lab 12/18/24 09:32 Results C.Diff PCR (Lab) Routine Lab 12/18/24 11:20 Ordered CMV IGG&IGM Panel Stat Lab 12/20/24 10:38 Received Immunochemical Fecal OCB Routine Lab 12/18/24 11:20 Ordered Interleukin 2 Receptor CD25 Routine Lab 12/18/24 Received Lactoferrin Routine Lab 12/18/24 11:20 Ordered Leptospira DNA,Qualitative PCR Routine Lab 12/18/24 Received OVA and Parasites, Conc and PE Routine Lab 12/18/24 11:20 Ordered Salmonella / Shigella / Campy Routine Lab 12/18/24 11:20 Ordered Tick Panel Stat Lab 12/17/24 20:37 Results Toxoplasma AB IGG,IGM Routine Lab 12/20/24 10:38 Received Radiology Impressions Abdomen Ultrasound 12/17/24 22:29 IMPRESSION: No acute findings. ADDENDUM: 12/18/24 0815 ADDENDUM: Aorta not evaluated. Chest/Abdomen/Pelvis CT 12/18/24 11:13 IMPRESSION: 1. Mild interlobular thickening in both lungs which can be seen with mild fluid overload. 2. Otherwise, no acute findings in the chest. 3. Mild cardiomegaly. 4. Mild dependent atelectatic changes at the level of the bilateral lower lobes. IMPRESSION: 1. No acute findings in the abdomen or pelvis. 2. Surgically absent right kidney. Laboratory Results WBC 12.02 10^3/uL (3.29-11.43) H 12/21/24 02:14 RBC 3.62 10^6/uL (3.85-5.65) L 12/21/24 02:14 Hgb 10.90 g/dL (11.27-16.99) L 12/21/24 02:14 Hct 33.5 % (37-53) L 12/21/24 02:14 MCV 92.5 fl (82-101) 12/21/24 02:14 MCH 30.1 pg (27-33) 12/21/24 02:14 MCHC 32.5 g/dL (30-55) 12/21/24 02:14 RDW 14.8 % (12.1-15.1) 12/21/24 02:14 Plt Count 126 10^3/cmm (157-399) L D 12/21/24 02:14 MPV 10.8 fL (7.4-10.4) H 12/21/24 02:14 Neut % (Auto) 16.3 % 12/20/24 04:22 Lymph % (Auto) Not Reportable 12/21/24 02:14 [place] % (Auto) Not Reportable 12/21/24 02:14 Eos % (Auto) 0.6 % 12/20/24 04:22 Baso % (Auto) 0.7 % 12/20/24 04:22 Reticulocyte % (Auto) 0.4 % (0.5-2.0) L 12/18/24 04:45 Neut # (Auto) 1.95 10^3/uL (1.8-7.7) 12/20/24 04:22 Lymph # (Auto) Not Reportable 12/21/24 02:14 [place] # (Auto) Not Reportable 12/21/24 02:14 Eos # (Auto) 0.1 10^3/uL (0.0-0.8) 12/20/24 04:22 Baso # (Auto) 0.1 10^3/uL (0.0-0.1) 12/20/24 04:22 Nucleated RBC % (auto) 0 % 12/20/24 04:22 Total Counted 100 (0-100) 12/21/24 02:14 Atypical Lymphs % 7.0 % (0-5) H 12/21/24 02:14 Absolute Neutrophils 3.6 10^3/cmm (1.4-6.5) 12/21/24 02:14 Segmented Neutrophils 28 % 12/21/24 02:14 Band Neutrophils 2.0 % 12/21/24 02:14 Absolute Lymphocytes 7.3 10^3/cmm (1.2-3.4) H 12/21/24 02:14 Lymphocytes (Manual) 54 % 12/21/24 02:14 Monocytes (Manual) 8.0 % 12/21/24 02:14 Absolute Monocytes 1.0 10^3/cmm (0.1-0.6) H 12/21/24 02:14 Eosinophils (Manual) 1 % 12/21/24 02:14 Absolute Eosinophils 0.1 10^3/cmm (0.0-0.7) 12/21/24 02:14 Basophils (Manual) 0.0 % 12/21/24 02:14 Absolute Basophils 0.0 10^3/cmm (0.0-0.2) 12/21/24 02:14 Nucleated RBCs # 0.0 /100WBC 12/20/24 04:22 Platelet Estimate Decreased (Normal) 12/21/24 02:14 Peripher Smr Path Cons Sent for review 12/18/24 04:45 ESR 8 mm/hr (0-10) 12/18/24 04:45 Haptoglobin 286.0 mg/L (30-200) H 12/18/24 04:45 PT 12.40 SECONDS (12.1-14.9) 12/18/24 11:39 INR 0.86 (0.8-1.2) 12/18/24 11:39 Fibrinogen 262 mg/dL (174-498) 12/18/24 15:19 Sodium 144 mmol/L (136-145) 12/21/24 02:14 Potassium 4.4 mmol/L (3.5-5.1) 12/21/24 02:14 Chloride 109 mmol/L (98-107) H 12/21/24 02:14 Carbon Dioxide 23 mmol/L (22-29) 12/21/24 02:14 Anion Gap 16.4 (5-19) 12/21/24 02:14 BUN 66 mg/dL (8-23) H 12/21/24 02:14 Creatinine 3.7 mg/dL (0.7-1.2) H 12/21/24 02:14 GFR Calculation 16.7 mL/min (90-130) L 12/21/24 02:14 Glucose 85 mg/dL (65-115) 12/21/24 02:14 Calculated Osmolality 316 mOsm/kg (285-295) H 12/21/24 02:14 Lactic Acid 0.8 mmol/L (0.5-2.2) 12/18/24 11:39 Calcium 8.0 mg/dL (8.5-10.5) L 12/21/24 02:14 Phosphorus 4.2 mg/dL (2.5-4.5) 12/17/24 16:45 Magnesium 2.1 mg/dL (1.7-2.3) 12/17/24 16:45 Iron 30 ug/dL (59-158) L 12/18/24 04:45 Ferritin 99699 ng/mL (30-400) H 12/18/24 04:45 Total Bilirubin 0.4 mg/dL (0.15-1.2) 12/21/24 02:14 AST 484 U/L (0-40) H 12/21/24 02:14 ALT 364 U/L (0-41) H 12/21/24 02:14 Alkaline Phosphatase 334 U/L (40-130) H 12/21/24 02:14 Lactate Dehydrogenase 885 U/L (135-225) H 12/18/24 04:45 Creatine Kinase 101 U/L (39-308) 12/19/24 04:29 C-Reactive Protein 145.6 mg/L (0.0-4.9) H 12/18/24 04:45 Total Protein 5.6 g/dL (6.6-8.7) L 12/21/24 02:14 Albumin 3.0 g/dL (3.5-5.2) L 12/21/24 02:14 Globulin 2.6 g/dL (1.3-4.6) 12/21/24 02:14 Triglycerides 396 mg/dL (0-150) H 12/18/24 15:19 Lipase 36 U/L (13-60) 12/17/24 16:45 Procalcitonin 6.12 ng/mL (0-0.5) H 12/18/24 04:45 Urine Color Dark yellow (Yellow) A 12/17/24 13:46 Urine Appearance Turbid (CLEAR) A 12/17/24 13:46 Urine pH 5.0 (5-7) 12/17/24 13:46 Ur Specific [place] 1.024 (1.005-1.030) 12/17/24 13:46 Urine Protein 2+ (Negative) A 12/17/24 13:46 Urine Glucose (UA) Negative (Normal) 12/17/24 13:46 Urine Ketones Trace (Negative) 12/17/24 13:46 Urine Blood 1+ (Negative) A 12/17/24 13:46 Urine Nitrate Negative (Negative) 12/17/24 13:46 Urine Bilirubin 1+ (Negative) H 12/17/24 13:46 Urine Urobilinogen 1.0 mg/dL (Negative) 12/17/24 13:46 Ur Leukocyte Esterase Negative (Negative) 12/17/24 13:46 Urine RBC 0-4 /hpf (0-2) H 12/17/24 13:46 Urine WBC 0-4 /hpf (0-5) H 12/17/24 13:46 Ur Squamous Epith Cells 6-10 /hpf (0-5) 12/17/24 13:46 Amorphous Sediment Not Reportable 12/17/24 13:46 Urine Bacteria None /hpf (NONE) 12/17/24 13:46 Hyaline Casts 25-40 /lpf H 12/17/24 13:46 Salicylates < 0.3 mg/dL (3-10) L 12/18/24 15:19 Urine Opiates Screen Negative ng/mL (Negative) 12/18/24 18:55 Acetaminophen < 5.0 ug/mL (10-30) L 12/18/24 15:19 Ur Barbiturates Screen Negative ng/mL (Negative) 12/18/24 18:55 Ur Phencyclidine Scrn Negative ng/mL (Negative) 12/18/24 18:55 Ur Amphetamines Screen Negative ng/mL (Negative) 12/18/24 18:55 U Benzodiazepines Scrn Negative ng/mL (Negative) 12/18/24 18:55 Urine Cocaine Screen Negative ng/mL (Negative) 12/18/24 18:55 U Marijuana (THC) Screen Negative ng/mL (Negative) 12/18/24 18:55 Lyme Ab (Western Blot) <0.90 index 12/17/24 20:37 EBV IgG Ab 382.00 U/mL H 12/18/24 11:39 EBV IgM Ab <36.00 U/mL 12/18/24 11:39 EBV Capsid Ag IgG, IgM <36.00 U/mL 12/18/24 11:39 EBV Nuclear Antigen >600.00 U/mL H 12/18/24 11:39 EBV Interpretation See note 12/18/24 11:39 Hepatitis A IgM Ab Non-reactive (Nonreactive) 12/17/24 16:45 Hep Bs Antigen Non-reactive (Nonreactive) 12/17/24 16:45 Hep B Core IgM Ab Non-reactive (Nonreactive) 12/17/24 16:45 Hepatitis C Antibody Non-reactive (Nonreactive) 12/17/24 16:45 Monoscreen Negative (Negative) 12/18/24 04:45 HIV 1&2 Ab & HIV 1 Ag Non-reactive (Non-Reactiv) 12/20/24 10:38 HIV 1&2 Antibody Non-reactive (Non-Reactiv) 12/20/24 10:38 EMILY, Poly Interpret Negative 12/18/24 04:45 Vitals Last Vital Signs Temp 97.7 F 12/21/24 07:35 Pulse 58 L 12/21/24 10:44 Resp 17 12/21/24 07:35 BP 130/70 12/21/24 10:44 Pulse Ox 97 12/21/24 10:44 O2 Del Method Room Air 12/21/24 07:35 Discharge Plan Discharge Patient Disposition: Home Condition: Stable Prescriptions: New doxycycline hyclate 100 mg tablet 100 mg PO BID 10 Days Qty: 20 0RF Changed topiramate 50 mg Tablet 25 mg PO BID Qty: 60 0RF Discharge Orders: Discharge Order (Routine); Ordered 12/21/24 Ordered By: Chun Bell Referrals: Macarena Mclaughlin MD [Hospitalist, Oncology] - 1 week Referral Note: We have notified your physician's clinic of the need for a follow-up appointment to be scheduled. If you have not heard from them within the next 2 business days, please call them directly. Ernie Deras MD [Primary Care Provider, [facility]] - 7-10 days Referral Note: Please call your primary care provider tomorrow to make a follow up appointment in 7-10 days. Discharge Diet: Regular Discharge Activity: Resume usual activity Patient Instructions: Doxycycline (By mouth), Lyme Disease (ED), Acute Kidney Injury (GEN), Tick Bite (ED), [place] Spotted Fever (DC), Thrombocytopenia (GEN), Opioid Safety Activity Restrictions/Additional Instructions: - Your hemoglobin discharge 10.9 - Platelet count discharge 126 to be monitored by Dr. Deras - You have atypical lymphocytes your peripheral smear, this needs to be monitored, referral sent to Dr. Mclaughlin - Your creatinine at discharge is 3.7, please follow-up through primary care, drink at least 2 to 3 L of fluid a day, avoid NSAIDs - AST 484 - ALT 364 - This needs to be monitored by your primary care - If any fevers or chills go to emergency room Discharge Attestations Time Spent in Discharge Care*: greater than 30 min Quality Metrics Clinical Quality Measures [ No reported AMI, CVA or VTE this stay] Coding Level of Care Code 44271 Total time (in minutes) for Discharge: 45 Diagnoses DARIA (acute kidney injury) N17.9
[2024-12-22 17:00] LABS: Cytomegalovirus Antibody (IGG) <0.60 U/mL; Cytomegalovirus Antibody (IGM) <30.00 AU/mL; Toxoplasma AB IGM <8.00 AU/mL
[2024-12-23 19:15] LABS: RMSF IGG NOT DETECTED; RMSF IGM NOT DETECTED
[2024-12-24 16:04] LABS: Leptospira DNA QL NOT DETECTED; Leptospira Source BLOOD
[2024-12-24 19:05] LABS: E. Chaffeensis AB IGG <1:64; E. Chaffeensis AB IGM <1:20
[2024-12-24 19:15] LABS: Bartonella Henselae IgG AB NEGATIVE; Bartonella Henselae IgM AB NEGATIVE; Bartonella Quintana IgG AB NEGATIVE; Bartonella Quintana IgM AB NEGATIVE
[2024-12-25 00:46] LABS: Interleukin 2 Receptor CD25 5756 pg/mL (532-1891)
== END 2024-12-21 10:45 | disposition home or self-care (01) | DRG 866 ==
LOC: ER 20:19 → MEDSURG 20:48
PROVIDERS: Emergency Medicine; Admitting Provider Internal Medicine; Emergency Provider Nurse Practitioner; PCP Family Medicine; Visit Provider Family Medicine
DX: A93.8 Other specified arthropod-borne viral fevers (principal); N17.9 Acute kidney failure, unspecified; E87.20 Acidosis, unspecified; E87.1 Hypo-osmolality and hyponatremia; N18.30 Chronic kidney disease, stage 3 unspecified; R74.01 Elevation of levels of liver transaminase levels; D69.6 Thrombocytopenia, unspecified; Z90.5 Acquired absence of kidney
CPT/HCPCS: 36415; 51702; 71250; 74176; 76700; 76770; 80048; 80053; 80074; 80306; 80307; 80503; 81001; 82550; 82728; 83010; 83540; 83605; 83615; 83690; 83735; 84100; 84145; 84238; 84478; 85007; 85025; 85045; 85384; 85610; 85651; 86140; 86308; 86611; 86618; 86664; 86665; 86666; 86757; 86777; 86880; 87040; 87798; 87806; 93005; 96360; 96372; 99285; J1644; J3480; J3490; J7040; J9999; Q3014

== ENCOUNTER 2024-12-22 11:55 | Outpatient (CLI) | payer MEDICARE, BC, SELFPAY ==
[2024-12-23 14:52] LABS: Leukemia Profile (BBPL) See Report
== END 2024-12-22 11:56 | disposition home or self-care (01) ==
PROVIDERS: Family Medicine; PCP Family Medicine; Visit Provider Internal Medicine Hematology & Oncology
DX: D72.89 Other specified disorders of white blood cells (principal)
CPT/HCPCS: 36415; 88184; 88185

== ENCOUNTER 2025-01-13 15:20 | Oncology outpatient (recurring) (ONCR) | payer MEDICARE, BC, SELFPAY ==
[2025-01-13 16:07] LABS: Basophils # 0.1 10^3/uL (0.0-0.1); Eosinophils # 0.2 10^3/uL (0.0-0.8); Eosinophils % 2.7 %; Hematocrit 37.9 % (37-53); Lymphocytes # 3.1 10^3/uL (0.8-4.8); Mean Corpuscular HGB Conc 32.2 g/dL (30-55); Mean Corpuscular Hemoglobin 29.6 pg (27-33); Mean Platelet Volume 9.5 fL (7.4-10.4); Monocytes # 0.7 10^3/uL (0.2-0.9); Monocytes % 8.7 %; Neutrophils # 3.86 10^3/uL (1.8-7.7); Neutrophils % 48.2 %; Nucleated Red Blood Cells % 0 %; Platelet Count 214 10^3/cmm (157-399); Red Blood Count 4.12 10^6/uL (3.85-5.65); Red Cell Distribution Width 13.6 % (12.1-15.1); White Blood Count 8.02 10^3/uL (3.29-11.43)
[2025-01-13 16:09] LABS: Erythrocyte Sedimentation Rate 19 mm/hr (0-10)
[2025-01-13 16:25] LABS: Alanine Aminotransferase 26 U/L (0-41); Albumin Level 4.2 g/dL (3.5-5.2); Alkaline Phosphatase 145 U/L (40-130); Anion Gap 17.7 (5-19); Aspartate Amino Transferase 22 U/L (0-40); Blood Urea Nitrogen 23 mg/dL (8-23); Calcium 8.8 mg/dL (8.5-10.5); Carbon Dioxide 19 mmol/L (22-29); Chloride 109 mmol/L (98-107); Creatinine Clr Calc Pharmacy 41.8872; Globulin 3.3 g/dL (1.3-4.6); Glomerular Filtration Rate 38.4 mL/min (90-130); Glucose 87 mg/dL (65-115); Lactate Dehydrogenase 223 U/L (135-225); Osmolality Calculated 295 mOsm/kg (285-295); Potassium 4.7 mmol/L (3.5-5.1); Sodium 141 mmol/L (136-145); Total Bilirubin 0.3 mg/dL (0.15-1.2); Total Protein 7.5 g/dL (6.6-8.7)
== END 2025-01-19 23:59 | disposition home or self-care (01) ==
PROVIDERS: Internal Medicine; PCP Family Medicine; Visit Provider Internal Medicine Hematology & Oncology
DX: D72.89 Other specified disorders of white blood cells (principal); Z90.5 Acquired absence of kidney; N18.9 Chronic kidney disease, unspecified; A93.8 Other specified arthropod-borne viral fevers
CPT/HCPCS: 80053; 83615; 85025; 85651; 86140; 99204

== ENCOUNTER 2025-03-18 12:34 | Oncology outpatient (recurring) (ONCR) | payer MEDICARE, BC, SELFPAY ==
[2025-03-18 13:00] LABS: Hematocrit 34.6 % (37-53); Hemoglobin 11.20 g/dL (11.27-16.99); Mean Corpuscular HGB Conc 32.4 g/dL (30-55); Mean Corpuscular Hemoglobin 29.9 pg (27-33); Mean Corpuscular Volume 92.3 fl (82-101); Nucleated Red Blood Cells % 0 %; Platelet Count 281 10^3/cmm (157-399); Red Blood Count 3.75 10^6/uL (3.85-5.65); White Blood Count 6.48 10^3/uL (3.29-11.43)
[2025-03-18 13:18] LABS: Alanine Aminotransferase 13 U/L (0-41); Albumin Level 4.3 g/dL (3.5-5.2); Alkaline Phosphatase 114 U/L (40-130); Anion Gap 11.6 (5-19); Aspartate Amino Transferase 14 U/L (0-40); Blood Urea Nitrogen 26 mg/dL (8-23); Calcium 8.9 mg/dL (8.5-10.5); Carbon Dioxide 26 mmol/L (22-29); Chloride 108 mmol/L (98-107); Creatinine Clr Calc Pharmacy 45.0447; Globulin 2.9 g/dL (1.3-4.6); Glucose 89 mg/dL (65-115); Osmolality Calculated 296 mOsm/kg (285-295); Potassium 4.6 mmol/L (3.5-5.1); Sodium 141 mmol/L (136-145); Total Protein 7.2 g/dL (6.6-8.7)
== END 2025-03-22 23:59 | disposition home or self-care (01) ==
PROVIDERS: PCP Family Medicine; Visit Provider Internal Medicine
DX: D72.89 Other specified disorders of white blood cells (principal); D64.9 Anemia, unspecified; A93.8 Other specified arthropod-borne viral fevers; Z90.5 Acquired absence of kidney; N18.9 Chronic kidney disease, unspecified
CPT/HCPCS: 36415; 80053; 82668; 83615; 85025; 86140; 99213

== ENCOUNTER 2025-06-01 15:12 | Outpatient (CLI) | payer MEDICARE, BC, SELFPAY | END 2025-06-01 15:13 | disposition home or self-care (01) | LOC: LAB 15:15 | PROVIDERS: PCP Family Medicine; Visit Provider Internal Medicine | DX: D72.89 Other specified disorders of white blood cells (principal); D64.9 Anemia, unspecified | CPT/HCPCS: 82570; 84166; 86335 ==

== ENCOUNTER 2025-06-17 10:15 | Oncology outpatient (recurring) (ONCR) | payer MEDICARE, BC, SELFPAY ==
[2025-06-17 10:17] LABS: Hematocrit 38.9 % (37-53); Hemoglobin 12.70 g/dL (11.27-16.99); Mean Corpuscular HGB Conc 32.6 g/dL (30-55); Mean Corpuscular Hemoglobin 30.0 pg (27-33); Mean Corpuscular Volume 91.7 fl (82-101); Nucleated Red Blood Cells % 0 %; Platelet Count 255 10^3/cmm (157-399); Red Blood Count 4.24 10^6/uL (3.85-5.65); White Blood Count 5.99 10^3/uL (3.29-11.43)
[2025-06-17 10:43] LABS: Alanine Aminotransferase 13 U/L (0-41); Albumin Level 4.4 g/dL (3.5-5.2); Alkaline Phosphatase 98 U/L (40-130); Anion Gap 16.4 (5-19); Aspartate Amino Transferase 14 U/L (0-40); Blood Urea Nitrogen 24 mg/dL (8-23); Calcium 9.1 mg/dL (8.5-10.5); Carbon Dioxide 22 mmol/L (22-29); Chloride 108 mmol/L (98-107); Ferritin 525 ng/mL (30-400); Globulin 3.0 g/dL (1.3-4.6); Glucose 98 mg/dL (65-115); Iron 87 ug/dL (59-158); Osmolality Calculated 298 mOsm/kg (285-295); Potassium 4.4 mmol/L (3.5-5.1); Sodium 142 mmol/L (136-145); Total Iron Binding Capacity 277 mcg/dl; Total Protein 7.4 g/dL (6.6-8.7); Unsaturated Iron Binding 190 ug/dL (112-347)
[2025-06-17 10:57] LABS: Vitamin B12 637 pg/mL (232-1245)
[2025-06-18 11:23] LABS: PROTEIN, TOTAL 6.8 g/dL (6.1-8.1)
[2025-06-19 20:11] LABS: ALPHA 1 GLOBULIN 0.3 g/dL (0.2-0.3); ALPHA 2 GLOBULIN 0.7 g/dL (0.5-0.9); BETA 1 GLOBULIN 0.4 g/dL (0.4-0.6); BETA 2 GLOBULIN 0.3 g/dL (0.2-0.5)
[2025-06-22 14:48] LABS: KAPPA LIGHT CHAIN, FREE, SERUM 24.2 mg/L (3.3-19.4); KAPPA/LAMBDA LIGHT CHAINS FREE 1.61 (0.26-1.65); LAMBDA LIGHT CHAIN, FREE, SERU 15.0 mg/L (5.7-26.3)
== END 2025-06-21 23:59 | disposition home or self-care (01) ==
PROVIDERS: PCP Family Medicine; Visit Provider Internal Medicine
DX: D72.89 Other specified disorders of white blood cells; D64.9 Anemia, unspecified; Z90.5 Acquired absence of kidney; N18.9 Chronic kidney disease, unspecified; M54.50 Low back pain, unspecified; Z53.9 Procedure and treatment not carried out, unspecified reason
CPT/HCPCS: 36415; 80053; 82607; 82728; 82746; 83010; 83540; 83550; 83615; 83883; 84155; 84165; 85025; 85045; 85651; 86334; 99213